=== PATIENT | female | born 1950 | race Caucasian/White ===

== ENCOUNTER 2018-03-11 09:05 | Emergency (ER) | payer MEDICARE ==
[~2018-03-11] VITALS: Ht 172.7 cm; Wt 65.8 kg
[~2018-03-11 09:05] MED LIST: DUONEB 3 MG/3 ML3 M1 INH; PREDNISONE10 MG PO; XANAX0.25 MG PO; ZITHROMAX TRI-500 M1 PO
[2018-03-11 09:11] VITALS: BP 137/40
[2018-03-11 09:33] LABS: BASO # 0.1 10*3/uL (0.0-0.1); BASO % 0.9 % (0.0-1.0); EOS # 0.2 10*3/uL (0.0-0.4); EOS % 2.4 % (1.0-4.0); HEMATOCRIT 41.1 % (37.0-47.0); HEMOGLOBIN 13.6 g/dl (12.0-16.0); LYMPH # 1.4 10*3/uL (1.3-4.4); LYMPH % 15.7 % (27.0-41.0); MEAN CORPUSCULAR HGB 29.1 pg (27.0-31.0); MEAN CORPUSCULAR HGB CONC 33.1 g/dl (33.0-37.0); MEAN PLATELET VOLUME 9.9 fl (9.6-12.3); MONO # 0.7 10*3/uL (0.1-1.0); MONO % 8.1 % (3.0-9.0); NEUT # 6.2 10*3/uL (2.3-7.9); NEUT % 72.7 % (47.0-73.0); PLATELET COUNT AUTOMATED 286 10*3/uL (130-400); RED BLOOD COUNT 4.67 10*6/uL (4.10-5.10); RED CELL DISTRI WIDTH 13.1 % (0-14.5); WHITE BLOOD COUNT 8.6 10*3/uL (4.8-10.8)
[2018-03-11 09:53] LABS: ALKALINE PHOSPHATASE 100 U/L (45-117); BUN 17 mg/dl (7-24); CHLORIDE 105 mmol/L (98-107); POTASSIUM 3.5 mmol/L (3.5-5.1); SGOT/AST 19 IU/L (3-35); SGPT/ALT 30 U/L (12-78); SODIUM 140 mmol/L (136-145); TOTAL PROTEIN 7.4 gm/dL (6.4-8.2)
[2018-03-11 10:30] LABS: BILIRUBIN NEGATIVE (NEGATIVE); BLOOD NEGATIVE (NEGATIVE); CLARITY CLOUDY (CLEAR); COLOR YELLOW (YELLOW); GLUCOSE NEGATIVE (NEGATIVE); KETONE NEGATIVE (NEGATIVE); LEUKO ESTERASE 1+ (NEGATIVE); NITRITE NEGATIVE (NEGATIVE); SPECIFIC GRAVITY 1.015 (1.005-1.030); UROBILINOGEN 0.2 E.U./dl (0.2-1.0)
[2018-03-11 10:38] LABS: BACTERIA 4+
[2018-03-11] MEDS ORDERED: ZOFRAN4 MG PO (12:18)
[2018-03-11] MEDS ORDERED: NORCO 5-325 TA1 EACH PO (12:18)
== END 2018-03-11 12:20 | disposition home or self-care (01) ==
LOC: ED 09:05
PROVIDERS: Nurse Practitioner Family
DX: N20.0 Calculus of kidney (principal); N13.30 Unspecified hydronephrosis; R03.0 Elevated blood-pressure reading, without diagnosis of hypertension; Z90.710 Acquired absence of both cervix and uterus; Z90.49 Acquired absence of other specified parts of digestive tract; Z79.899 Other long term (current) drug therapy

== ENCOUNTER 2024-12-18 17:50 | Emergency (ER) | payer MEDICARE, BC ==
[~2024-12-18] VITALS: Ht 172.7 cm; Wt 66.9 kg
[~2024-12-18 17:50] MED LIST changes: +NORCO 5-325 TA1 EACH PO; +ZOFRAN4 MG PO
[2024-12-18 18:07] VITALS: BP 121/88
[2024-12-18] MEDS ORDERED: ATHLETIC FOOT C30 GM T (18:34)
[2024-12-18] MEDS ORDERED: CLOTRIMAZOLE 15 GM TUBE T ONE (18:40)
== END 2024-12-18 18:42 | disposition home or self-care (01) ==
LOC: ED 17:50
DX: L30.4 Erythema intertrigo (principal); J45.909 Unspecified asthma, uncomplicated; E78.00 Pure hypercholesterolemia, unspecified; E83.41 Hypermagnesemia; E87.0 Hyperosmolality and hypernatremia; E87.6 Hypokalemia; Z90.710 Acquired absence of both cervix and uterus; Z90.49 Acquired absence of other specified parts of digestive tract; Z98.890 Other specified postprocedural states